=== PATIENT | female | born 1995 | race Caucasian/White ===

== ENCOUNTER 2018-06-11 14:45 | Emergency (ER) | payer OTHER ==
[~2018-06-11] VITALS: Ht 149.9 cm; Wt 67.1 kg
[2018-06-11] MEDS ORDERED: LORAZEPAM 1 MG TABLET ONE (15:26)
[2018-06-11] MEDS ORDERED: LORAZEPAM 0.5 MG TABLET PO ONE (15:30)
--- NOTE | 2018-06-11 15:40 | NUR ---
Patient discharged to home in stable conditon. Written and verbal after care instructions given. Patient verbalizes understanding of instructions.
== END 2018-06-11 15:41 | disposition home or self-care (01) ==
LOC: ER 14:45
DX: F41.9 Anxiety disorder, unspecified (principal)
CPT/HCPCS: 93005; A4663

== ENCOUNTER 2018-10-29 11:15 | Emergency (ER) | payer MEDICAID, OTHER ==
[~2018-10-29] VITALS: Ht 149.9 cm; Wt 72.6 kg
[2018-10-29 12:25] LABS: BASOPHILS % (AUTO) 0.2 % (0.0-2.0); EOSINOPHILS # (AUTO) 0.1 K/uL (0.0-0.7); HEMATOCRIT 37.4 % (31.2-41.9); HEMOGLOBIN 12.5 g/dL (10.9-14.3); LYMPHOCYTES # (AUTO) 1.9 K/uL (20.0-40.0); LYMPHOCYTES % (AUTO) 23.2 % (20.5-51.5); MEAN CORPUSCULAR HEMOGLOBIN 27.9 uug (24.7-32.8); MEAN CORPUSCULAR HGB CONC 33 g/dL (32.3-35.6); MEAN CORPUSCULAR VOLUME 83.6 fL (75.5-95.3); MONOCYTES # (AUTO) 0.6 K/uL (2.0-10.0); NEUTROPHILS # (AUTO) 5.7 K/uL (1.8-8.9); NEUTROPHILS % (AUTO) 68.6 % (38.5-71.5); PLATELET COUNT (AUTO) 210 K/uL (179-408); RED BLOOD CELL COUNT(AUTO) 4.48 MIL/uL (3.63-4.92); WHITE BLOOD COUNT (AUTO) 8.3 K/uL (3.8-11.8)
[2018-10-29 12:33] LABS: CREATININE 0.8 mg/dL (0.6-1.3); POTASSIUM 3.5 mmol/L (3.5-5.1)
[2018-10-29 12:38] LABS: BILIRUBIN,DIRECT 0.1 mg/dL (0.0-0.2); BILIRUBIN,TOTAL 0.3 mg/dL (0.2-1.0); TOTAL PROTEIN, SERUM 7.6 g/dL (6.4-8.2)
--- NOTE | 2018-10-29 13:11 | NUR ---
Patient discharged to home in stable conditon. Written and verbal after care instructions given. Patient verbalizes understanding of instructions.
== END 2018-10-29 13:12 | disposition home or self-care (01) ==
LOC: ER 11:17
DX: R10.2 Pelvic and perineal pain (principal)
CPT/HCPCS: 36415; 76856; 85025; 85730; A4663

== ENCOUNTER 2018-10-31 07:59 | Emergency (ER) | payer MEDICAID, OTHER ==
[~2018-10-31] VITALS: Ht 152.4 cm; Wt 72.6 kg
--- NOTE | 2018-10-31 09:02 | NUR ---
mse completed, dr viera gave verbal aci.Patient discharged to home in stable conditon. Patient verbalizes understanding of instructions. Pt ambulatory with a steady gait. Pt took all belongings.
[2018-10-31 09:05] VITALS: BP 111/66
== END 2018-10-31 09:00 | disposition home or self-care (01) ==
LOC: ER 07:59
DX: Z00.00 Encounter for general adult medical examination without abnormal findings (principal)
CPT/HCPCS: 36415; A4663

== ENCOUNTER 2019-10-06 11:45 | Emergency (ER) | payer SELFPAY ==
[~2019-10-06] VITALS: Ht 152.4 cm; Wt 67.6 kg
--- NOTE | 2019-10-06 11:59 | NUR ---
patient ambulating in steady gait. A&O x4. presents with Left chest pain starting last night but went away. started this am again but denies radiating. states dull pain 3/10 on pain scale. cap refill <3 sec. denies any hx of cardiovascular problems. speech clear and able to make needs known / follow commands. breathing even and unlabored. denies any SOB. satting at 99% on RA. denies any / GI distress. fall precautions implemented per protocol. bed low, s/r up x2.
--- NOTE | 2019-10-06 12:23 | NUR ---
ERMD at bedside for MSE
[2019-10-06 12:43] LABS: BASOPHILS % (AUTO) 0.2 % (0.0-2.0); EOSINOPHILS # (AUTO) 0.1 K/uL (0.0-0.7); EOSINOPHILS % (AUTO) 0.7 % (0.0-7.0); LYMPHOCYTES # (AUTO) 3.5 K/uL (20.0-40.0); LYMPHOCYTES % (AUTO) 42.2 % (20.5-51.5); MEAN CORPUSCULAR HEMOGLOBIN 25.6 uug (24.7-32.8); MEAN CORPUSCULAR HGB CONC 32 g/dL (32.3-35.6); MEAN CORPUSCULAR VOLUME 79.2 fL (75.5-95.3); MONOCYTES # (AUTO) 0.5 K/uL (2.0-10.0); MONOCYTES % (AUTO) 6.1 % (0.0-11.0); NEUTROPHILS # (AUTO) 4.2 K/uL (1.8-8.9); NEUTROPHILS % (AUTO) 50.8 % (38.5-71.5); PLATELET COUNT (AUTO) 256 K/uL (179-408); RED BLOOD CELL COUNT(AUTO) 4.68 MIL/uL (3.63-4.92); WHITE BLOOD COUNT (AUTO) 8.3 K/uL (3.8-11.8)
[2019-10-06 12:51] LABS: CREATININE 0.8 mg/dL (0.6-1.3); POTASSIUM 3.6 mmol/L (3.5-5.1)
[2019-10-06 13:04] LABS: BILIRUBIN,DIRECT 0.1 mg/dL (0.0-0.2); BILIRUBIN,TOTAL 0.5 mg/dL (0.2-1.0)
--- NOTE | 2019-10-06 14:44 | NUR ---
IV removed. Catheter intact and site benign. Pressure and 4x4 gauze applied to site. No bleeding noted.Patient discharged to home in stable conditon. pt ambulating with steady gait. Written and verbal after care instructions given. Patient verbalizes understanding of instructions.
[2019-10-06 14:49] VITALS: BP 120/77
== END 2019-10-06 14:44 | disposition home or self-care (01) ==
LOC: ER 11:47 → MERGE 11:47 → ER 14:44
DX: R07.89 Other chest pain (principal)
CPT/HCPCS: 36415; 70030-TC; 85025; 85730; 93005; A4663

== ENCOUNTER 2021-03-24 03:34 | Emergency (ER) | payer MEDICAID ==
[~2021-03-24] VITALS: Ht 162.6 cm; Wt 77.1 kg
--- NOTE | 2021-03-24 03:36 | NUR ---
Came in ambulatory c/o headache 06/09. To room 2A; seen and evaluated by Dr. Valerio.
[2021-03-24] MEDS: METOCLOPRAMIDE HCL 10 MG/2 ML VIAL IM ONE (03:56)
[2021-03-24] MEDS ORDERED: METOCLOPRAMIDE HCL 10 MG/2 ML VIAL ONE (03:59)
--- NOTE | 2021-03-24 03:59 | NUR ---
Medicated with Reglan IM for nausea.
[2021-03-24] MEDS: ACETAMINOPHEN ES 500 MG TABLET PO ONE (04:19)
--- NOTE | 2021-03-24 04:19 | NUR ---
Rikki effective. Medicated with Tylenol for headache.
[2021-03-24] MEDS ORDERED: ACETAMINOPHEN ES 500 MG TABLET ONE (04:21)
--- NOTE | 2021-03-24 04:32 | NUR ---
Dr Valerio into re eval patient. Patient stating " I feel better now."
[2021-03-24 04:35] VITALS: BP 128/77
--- NOTE | 2021-03-24 04:35 | NUR ---
Patient discharged to home in stable condition with boyfreind taking patient home. Written and verbal after care instructions given. Patient verbalizes understanding of instructions. Stressed follow up or return to ER for worsening s/s.
== END 2021-03-24 04:36 | disposition home or self-care (01) ==
LOC: ER 03:35
DX: R51.9 Headache, unspecified (principal); O21.9 Vomiting of pregnancy, unspecified; Z3A.14 14 weeks gestation of pregnancy; R03.0 Elevated blood-pressure reading, without diagnosis of hypertension
CPT/HCPCS: 99283; J2765; A4663; A9150

== ENCOUNTER 2021-07-14 14:29 | Emergency (ER) | payer MEDICAID ==
[~2021-07-14] VITALS: Ht 149.9 cm; Wt 77.1 kg
--- NOTE | 2021-07-14 16:04 | NUR ---
1553pm: Technology Architect assumes care, 1st contact with patient, AOX4, calm & breathing easily, skin is warm & dry, c/o numbness of all finger tips since last weekend, denies any other issues, for urine & blood draw at this time
[2021-07-14 16:10] LABS: MEAN CORPUSCULAR HEMOGLOBIN 29.8 uug (24.7-32.8); MEAN CORPUSCULAR VOLUME 86.6 fL (75.5-95.3); PLATELET COUNT (AUTO) 232 K/uL (179-408)
[2021-07-14 16:17] LABS: CREATININE 0.6 mg/dL (0.6-1.3); POTASSIUM 3.4 mmol/L (3.5-5.1)
[2021-07-14 16:21] LABS: PHOSPHOROUS 4.4 mg/dL (2.5-4.9); URIC ACID 3.5 mg/dL (2.6-6.0)
[2021-07-14 16:23] LABS: BILIRUBIN,DIRECT 0.1 mg/dL (0.0-0.2); BILIRUBIN,TOTAL 0.2 mg/dL (0.2-1.0); TOTAL PROTEIN, SERUM 6.8 g/dL (6.4-8.2)
[2021-07-14 16:24] LABS: *BILIRUBIN,URIN NEGATIVE (NEGATIVE); *BLOOD, URINE NEGATIVE (NEGATIVE); *CLARITY,URINE SLIGHTLY CLOUDY (CLEAR); *COLOR,URINE YELLOW (YELLOW); *KETONES,URINE NEGATIVE (NEGATIVE); *UROBILINOGEN,URINE 0.2 E.U./dl (NORMAL); LEUKOCYTE ESTERASE ,URINE TRACE (NEGATIVE); NITRITE, URINE POSITIVE (NEGATIVE); PH,URINE 6.5 (5.0-8.0); UGLUCOSE NEGATIVE (NEGATIVE)
[2021-07-14] MEDS ORDERED: POTASSIUM CHLORIDE 20 MEQ TAB.PRT.SR PO ONE (16:30)
[2021-07-14 16:36] LABS: BACTERIA,URINE MANY /HPF (NONE SEEN); MUCUS,URINE MANY /LPF (0-FEW); RBC,URINE 0-3 /HPF (0-3); SQUAMOUS EPITHELIAL CELL,UR MANY /HPF (NONE SEEN); URINE AMORPHOUS URATE MANY /HPF
[2021-07-14] MEDS ORDERED: POTASSIUM CHLORIDE 20 MEQ TAB.PRT.SR ONE (16:39)
[2021-07-14] MEDS ORDERED: NITR-104 PO (16:51)
[2021-07-14 16:58] LABS: THYROID STIMULATING HORMONE 0.887 mIU/mL (0.358-3.740)
--- NOTE | 2021-07-14 17:10 | NUR ---
PT WAS D/C'd TO HOME AFTER DR LEZAMA EVALUATION. D/C INSTRUCTIONS GIVEN TO THE PT BY DR LEZAMA.
[2021-07-14 17:11] VITALS: BP 133/75
== END 2021-07-14 17:12 | disposition home or self-care (01) ==
LOC: ER 14:31
DX: O23.43 Unspecified infection of urinary tract in pregnancy, third trimester (principal); O12.03 Gestational edema, third trimester; Z3A.30 30 weeks gestation of pregnancy
CPT/HCPCS: 36415; 83615; 83735; 84100; 84443; 84550; 85025; 85730; 87086; A4663

== ENCOUNTER 2023-11-20 16:47 | Emergency (ER) | payer MEDICAID ==
[~2023-11-20] VITALS: Ht 149.9 cm; Wt 72.6 kg
[~2023-11-20 16:47] MED LIST: NITR-104 PO
[2023-11-20 17:29] LABS: *BILIRUBIN,URIN NEGATIVE (NEGATIVE); *BLOOD, URINE NEGATIVE (NEGATIVE); *CLARITY,URINE CLEAR (CLEAR); *COLOR,URINE YELLOW (YELLOW); *KETONES,URINE NEGATIVE (NEGATIVE); *PROTEIN,URINE NEGATIVE (NEGATIVE); *UROBILINOGEN,URINE 0.2 E.U./dl (NORMAL); LEUKOCYTE ESTERASE ,URINE NEGATIVE (NEGATIVE); NITRITE, URINE NEGATIVE (NEGATIVE); PH,URINE 8.5 (5.0-8.0); UGLUCOSE NEGATIVE (NEGATIVE)
[2023-11-20 17:47] LABS: *URINE HCG, QUAL NEGATIVE (NEGATIVE)
[2023-11-20 19:18] LABS: BASOPHILS # (AUTO) 0.1 K/UL (0.0-0.2); BASOPHILS % (AUTO) 2.3 % (0.0-2.0); EOSINOPHILS # (AUTO) 0.3 K/uL (0.0-0.7); HEMATOCRIT 38.2 % (31.2-41.9); HEMOGLOBIN 12.9 g/dL (10.9-14.3); LYMPHOCYTES # (AUTO) 1.3 K/uL (0.8-4.8); LYMPHOCYTES % (AUTO) 23.2 % (20.5-51.5); MEAN CORPUSCULAR HEMOGLOBIN 28.7 uug (24.7-32.8); MEAN CORPUSCULAR HGB CONC 34 g/dL (32.3-35.6); MEAN CORPUSCULAR VOLUME 85.1 fL (75.5-95.3); MONOCYTES # (AUTO) 0.4 K/uL (0.1-1.30); MONOCYTES % (AUTO) 7.4 % (0.0-11.0); NEUTROPHILS # (AUTO) 3.5 K/uL (1.8-8.9); NEUTROPHILS % (AUTO) 61.1 % (38.5-71.5); PLATELET COUNT (AUTO) 239 K/uL (179-408); RED BLOOD CELL COUNT(AUTO) 4.49 MIL/uL (3.63-4.92); WHITE BLOOD COUNT (AUTO) 5.8 K/uL (3.8-11.8)
[2023-11-20 19:20] LABS: DIFFERENTIAL COMMENT 1
[2023-11-20 19:51] LABS: ALANINE AMINOTRANSFERASE 35 U/L (14-59); ALBUMIN 4.2 g/dL (3.4-5.0); ALKALINE PHOSPHATASE 113 U/L (50-136); ASPARTATE AMINOTRANSFERASE 22 U/L (15-37); BILIRUBIN,TOTAL 0.4 mg/dL (0.2-1.0); CALCIUM 8.9 mg/dL (8.5-10.1); CARBON DIOXIDE 29 mmol/L (21-32); CHLORIDE 101 mmol/L (98-107); CREATININE 0.8 mg/dL (0.6-1.3); GLUCOSE 106 mg/dL (74-106); POTASSIUM 3.6 mmol/L (3.5-5.1); SODIUM SERUM 140 mmol/L (136-145); TOTAL PROTEIN, SERUM 8.1 g/dL (6.4-8.2); UREA NITROGEN, BLOOD 7 mg/dL (7-18)
[2023-11-20 19:59] LABS: BILIRUBIN,DIRECT < 0.1 mg/dL (0.0-0.2)
[2023-11-20 20:07] LABS: LIPASE 37 U/L (16-77)
[2023-11-20 21:29] VITALS: BP 119/75; TEMP 98.2; O2SAT 99
== END 2023-11-20 20:50 | disposition home or self-care (01) ==
LOC: ER 16:51
DX: R10.31 Right lower quadrant pain (principal); R10.32 Left lower quadrant pain; R10.2 Pelvic and perineal pain; R19.7 Diarrhea, unspecified; Z79.899 Other long term (current) drug therapy; Z60.2 Problems related to living alone
CPT/HCPCS: 36415; 83690; 84703; 85025; A4606; A4663

== ENCOUNTER 2024-10-11 21:32 | Emergency (ER) | payer MEDICAID ==
[~2024-10-11] VITALS: Ht 149.9 cm; Wt 74.8 kg
[2024-10-11 23:27] LABS: BASOPHILS % (AUTO) 0.2 % (0.0-2.0); EOSINOPHILS # (AUTO) 0.1 K/uL (0.0-0.7); EOSINOPHILS % (AUTO) 0.8 % (0.0-7.0); HEMATOCRIT 38.9 % (31.2-41.9); HEMOGLOBIN 13.1 g/dL (10.9-14.3); LYMPHOCYTES # (AUTO) 0.6 K/uL (0.8-4.8); LYMPHOCYTES % (AUTO) 9.7 % (20.5-51.5); MEAN CORPUSCULAR HEMOGLOBIN 28.6 uug (24.7-32.8); MEAN CORPUSCULAR HGB CONC 34 g/dL (32.3-35.6); MEAN CORPUSCULAR VOLUME 84.7 fL (75.5-95.3); MONOCYTES # (AUTO) 0.3 K/uL (0.1-1.30); MONOCYTES % (AUTO) 4.3 % (0.0-11.0); NEUTROPHILS # (AUTO) 5.6 K/uL (1.8-8.9); PLATELET COUNT (AUTO) 213 K/uL (179-408); RED BLOOD CELL COUNT(AUTO) 4.59 MIL/uL (3.63-4.92); RED CELL DISTRIBUTION WIDTH 13.8 % (12.3-17.7); WHITE BLOOD COUNT (AUTO) 6.5 K/uL (3.8-11.8)
[2024-10-11] MEDS ORDERED: FAMOTIDINE. 20 MG/2 ML VIAL IV ONE (23:35)
[2024-10-11] MEDS ORDERED: ONDANSETRON 4 MG/2 ML VIAL ONE (23:35)
[2024-10-11] MEDS ORDERED: KETOROLAC TROMETHAMINE 15 MG INJ ONE (23:35)
[2024-10-11] MEDS: FAMOTIDINE. 20 MG/2 ML VIAL IV ONE (23:41)
[2024-10-11] MEDS: ONDANSETRON 4 MG/2 ML VIAL IV ONE (23:41)
[2024-10-11] MEDS: IV NORMAL SALINE 1000 ML BAG IV ONE (23:41)
[2024-10-11] MEDS: KETOROLAC TROMETHAMINE 15 MG INJ IVP ONE (23:41)
[2024-10-11 23:48] LABS: ALBUMIN 4.1 g/dL (3.4-5.0); BILIRUBIN,DIRECT 0.1 mg/dL (0.0-0.2); BILIRUBIN,TOTAL 0.6 mg/dL (0.2-1.0); CALCIUM 8.9 mg/dL (8.5-10.1); CREATININE 0.8 mg/dL (0.6-1.3); POTASSIUM 3.7 mmol/L (3.5-5.1); TOTAL PROTEIN, SERUM 8.1 g/dL (6.4-8.2)
[2024-10-12 00:14] LABS: *BLOOD, URINE NEGATIVE (NEGATIVE); *CLARITY,URINE CLEAR (CLEAR); *COLOR,URINE YELLOW (YELLOW); *KETONES,URINE NEGATIVE (NEGATIVE); *PROTEIN,URINE 1+ (NEGATIVE); *UROBILINOGEN,URINE 0.2 E.U./dl (NORMAL); LEUKOCYTE ESTERASE ,URINE NEGATIVE (NEGATIVE); NITRITE, URINE NEGATIVE (NEGATIVE); UGLUCOSE NEGATIVE (NEGATIVE)
[2024-10-12 00:18] LABS: *BILIRUBIN,URIN 1+ (NEGATIVE)
[2024-10-12 00:20] LABS: *URINE HCG, QUAL NEGATIVE (NEGATIVE)
[2024-10-12 00:27] LABS: BACTERIA,URINE FEW /HPF (NONE SEEN); RBC,URINE 0-3 /HPF (0-3); SQUAMOUS EPITHELIAL CELL,UR FEW /HPF (NONE SEEN); URIC ACID CRYSTALS,URINE FEW /HPF (NONE SEEN); WBC,URINE 0-3 /HPF (0-3)
[2024-10-12 00:28] LABS: MUCUS,URINE FEW /LPF (0-FEW); WAXY CASTS,URINE NONE SEEN /LPF (NONE SEEN)
[2024-10-12] MEDS ORDERED: LOPE2CAP40 PO (00:45)
[2024-10-12] MEDS ORDERED: ONDA4TAB11 PO (00:45)
[2024-10-12] MEDS ORDERED: LOPERAMIDE HCL 2 MG CAPSULE ONE (00:45)
[2024-10-12] MEDS: LOPERAMIDE HCL 2 MG CAPSULE PO ONE (00:48)
[2024-10-12 01:26] VITALS: BP 110/70; TEMP 98; O2SAT 98
== END 2024-10-12 01:27 | disposition home or self-care (01) ==
LOC: ER 21:32
DX: A08.4 Viral intestinal infection, unspecified (principal); E86.0 Dehydration; R11.2 Nausea with vomiting, unspecified; R19.7 Diarrhea, unspecified; R10.2 Pelvic and perineal pain; Z79.899 Other long term (current) drug therapy; Z60.2 Problems related to living alone; Z88.7 Allergy status to serum and vaccine
CPT/HCPCS: 99284; 96374; 96375; 96361; 80076; 80048; 83690; 85025; 36415; 81001; 84703; J3490; J1885; J2405; J7040; A4606; A4663

== ENCOUNTER 2024-12-21 10:09 | Emergency (ER) | payer MEDICAID ==
[~2024-12-21] VITALS: Ht 149.9 cm; Wt 77.1 kg
[~2024-12-21 10:09] MED LIST changes: +LOPE2CAP40 PO; +ONDA4TAB11 PO
[2024-12-21] MEDS ORDERED: KETOROLAC TROMETHAMINE 15 MG INJ ONE (10:39)
[2024-12-21] MEDS ORDERED: IBUP-1955 PO (10:46)
[2024-12-21] MEDS: KETOROLAC TROMETHAMINE 15 MG INJ IM ONE (10:47)
[2024-12-21 10:58] VITALS: BP 116/80; TEMP 98.9; O2SAT 98
[2024-12-21] MEDS ORDERED: OSEL75CA PO (15:59)
== END 2024-12-21 10:59 | disposition home or self-care (01) ==
LOC: ER 10:09
DX: J06.9 Acute upper respiratory infection, unspecified (principal); R05.9 Cough, unspecified; R09.89 Other specified symptoms and signs involving the circulatory and respiratory systems; R51.9 Headache, unspecified; H92.01 Otalgia, right ear; F32.A Depression, unspecified; Z20.822 Contact with and (suspected) exposure to COVID-19; Z88.7 Allergy status to serum and vaccine
CPT/HCPCS: 99283; 87426; 87804 ×2; 96372; J1885; A4606; A4663

== ENCOUNTER 2025-01-24 19:03 | Emergency (ER) | payer MEDICAID ==
[~2025-01-24] VITALS: Ht 149.9 cm; Wt 77.1 kg
[~2025-01-24 19:03] MED LIST changes: +IBUP-1955 PO; +OSEL75CA PO
[2025-01-24 22:00] VITALS: BP 115/76; TEMP 98; O2SAT 97
== END 2025-01-24 22:01 | disposition home or self-care (01) ==
LOC: ER 19:03
DX: S93.492A Sprain of other ligament of left ankle, initial encounter (principal); Z88.7 Allergy status to serum and vaccine; X50.1XXA Overexertion from prolonged static or awkward postures, initial encounter; Y93.89 Activity, other specified; Y92.89 Other specified places as the place of occurrence of the external cause; Y99.8 Other external cause status
CPT/HCPCS: A4606; A4663

== ENCOUNTER 2025-07-11 17:51 | Emergency (ER) | payer MEDICAID ==
[~2025-07-11] VITALS: Ht 149.9 cm; Wt 75.7 kg
[2025-07-11 20:25] VITALS: BP 133/71; TEMP 98.5; O2SAT 98
== END 2025-07-11 20:25 | disposition home or self-care (01) ==
LOC: ER 17:56
DX: F41.9 Anxiety disorder, unspecified (principal); R00.2 Palpitations; R25.1 Tremor, unspecified; R42 Dizziness and giddiness; Z88.7 Allergy status to serum and vaccine
CPT/HCPCS: A4606; A4663

== ENCOUNTER 2025-11-08 13:56 | Emergency (ER) | payer MEDICAID ==
[~2025-11-08] VITALS: Ht 149.9 cm; Wt 75.3 kg
[~2025-11-08 13:56] MED LIST changes: -IBUP-1955 PO; +IBUP600T51 PO; -NITR-104 PO; +NITR-165 PO; +ONDA-243 PO; -ONDA4TAB11 PO
[2025-11-08 13:57] VITALS: BP 134/96
[2025-11-08 15:38] VITALS: BP 130/89; O2SAT 99
== END 2025-11-08 15:39 | disposition home or self-care (01) ==
LOC: ER 13:56
DX: R50.9 Fever, unspecified (principal); R51.9 Headache, unspecified; Z88.7 Allergy status to serum and vaccine; Z20.822 Contact with and (suspected) exposure to COVID-19
CPT/HCPCS: A4606; A4663